=== PATIENT | female | born 1990 | race Caucasian/White ===

== ENCOUNTER 2017-11-24 14:42 | Emergency (ER) | payer OTHER ==
[2017-11-24] MEDS ORDERED: ONDANSETRON 4 MG (ODT) TAB ONE (15:57)
--- NOTE | 2017-11-24 16:20 | ER ---
Nurse's Notes [facility] Name: Heavenly Salinas Age: 27 yrs Sex: Female : 1990 Arrival Date: 11/24/2017 Time: 14:46 Bed 16 Private MD: Diagnosis: Nausea and vomiting Presentation: 11/24 14:51 Presenting complaint: Patient states: N/V for 2 weeks. Transition of care: patient was aj not received from another setting of care. Onset of symptoms was November 22, 2017. Care prior to arrival: None. 14:51 Method Of Arrival: Ambulatory aj 14:51 Acuity: DIONTE 3 aj Triage Assessment: 14:54 General: Appears in no apparent distress. comfortable, Behavior is calm, cooperative, aj appropriate for age. Pain: Denies pain. Neuro: Level of Consciousness is awake, alert, obeys commands, Oriented to person, place, time, situation. Respiratory: Airway is patent Respiratory effort is even, unlabored, Respiratory pattern is regular, symmetrical. GI: Reports nausea, vomiting. Derm: Skin is intact, is healthy with good turgor, Skin is pink, warm \T\ dry. normal. 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 - Social history:: Smoking status: Patient/guardian denies using tobacco, Patient uses street drugs, marijuana. Screenin:10 Abuse screen: Denies threats or abuse. Nutritional screening: No deficits noted. rb1 Tuberculosis screening: No symptoms or risk factors identified. Fall Risk None identified. Assessment: 15:10 General: Appears in no apparent distress. comfortable, Behavior is calm, cooperative. rb1 Neuro: Level of Consciousness is awake, alert, obeys commands, Oriented to person, place, time, situation. Cardiovascular: Capillary refill < 3 seconds is brisk in bilateral fingers. Respiratory: Airway is patent Respiratory effort is even, unlabored, Respiratory pattern is regular, symmetrical. GI: Reports nausea, vomiting. GI: Bowel sounds present X 4 quads. : No signs and/or symptoms were reported regarding the genitourinary system. Derm: Skin is pink, warm \T\ dry. 15:10 GI: Abdomen is flat, non-distended. rb1 16:00 Reassessment: Patient appears in no apparent distress at this time. No changes from rb1 previously documented assessment. 16:39 Reassessment: pt. tolerated the PO challenge well. Pt. requested some Pepcid before rb1 being discharged. Provider notified. Vital Signs: 14:54 BP 126 / 91; Pulse 113; Resp 20; Temp 99.3; Pulse Ox 99% on R/A; Weight 60.33 kg; aj Height 5 ft. 7 in. (170.18 cm); Pain 0/10; 15:42 BP 123 / 84; Pulse 83; Resp 18; Pulse Ox 100% on R/A; Weight 57.02 kg (M); rb1 16:30 BP 118 / 82; Pulse 74; Resp 16; Pulse Ox 100% ; rb1 15:42 Body Mass Index 19.69 (57.02 kg, 170.18 cm) rb1 ED Course: 14:46 Patient arrived in ED. mr 14:52 Triage completed. aj 14:54 Arm band placed on right wrist. Patient placed in waiting room. aj 15:08 Rikki Fung PA is PHCP. cp 15:08 Tristan Geuvara MD is Attending Physician. cp 15:10 Patient has correct armband on for positive identification. Bed in low position. Call rb1 light in reach. Side rails up X 1. Pulse ox on. NIBP on. 15:34 Vianey Araujo, RN is Primary Nurse. rb1 16:19 Eric Pop MD is Referral Physician. cp 16:53 No provider procedures requiring assistance completed. Patient did not have IV access rb1 during this emergency room visit. Administered Medications: 15:36 CANCELLED (provider changed order to PO): Zofran 4 mg IVP once; over 2 minutes rb1 15:39 Drug: Zofran 4 mg Route: PO; rb1 16:03 Follow up: Response: No adverse reaction; Nausea is decreased rb1 16:48 Drug: Pepcid 20 mg Route: PO; rb1 16:49 Follow up: Response: Medication administered at discharge. rb1 Outcome: 16:19 Discharge ordered by . cp 16:50 Discharged to home ambulatory, with significant other. rb1 16:50 Condition: stable 16:50 Discharge instructions given to patient, Instructed on discharge instructions, follow up and referral plans. medication usage, Demonstrated understanding of instructions, follow-up care, medications, Prescriptions given X 2. 16:50 Patient left the ED. rb1 Signatures: Bria Seaman RN RN Thao Coulter mr Antonieta, Rikki, NADER PA Vianey Venegas RN RN rb1 Corrections: (The following items were deleted from the chart) 14:54 14:51 Presenting complaint: Patient states: N/V for 2 days. aj aj 16:52 15:30 BP 118 / 82; Pulse 74bpm; Resp 16bpm; Pulse Ox 100%; rb1 rb1 16:53 15:42 57.02 kg Measured; BMI: 19.6; rb1 rb1 16:55 16:54 Patient left the ED. rb1 rb1
--- NOTE | 2017-11-24 16:20 | EDPHYS ---
Physician Documentation [facility] Name: Heavenly Salinas Age: 27 yrs Sex: Female : 1990 Arrival Date: 11/24/2017 Time: 14:46 Bed 16 Private MD: ED Physician Tristan Guevara HPI: 11/24 15:28 This 27 yrs old Female presents to ER via Ambulatory with complaints of cp Vomiting. 15:28 The patient presents to the emergency department with vomiting, that is intermittent. cp 15:28 Onset: The symptoms/episode began/occurred 2 week(s) ago. Possible causes: flare up of cp bowel problem, gastritis. Associated signs and symptoms: Pertinent positives: abdominal pain, Pertinent negatives: constipation, diarrhea, dysuria, fever, GI bleeding. Severity of symptoms: in the emergency department the symptoms have improved markedly. 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 - Social history:: Smoking status: Patient/guardian denies using tobacco, Patient uses street drugs, marijuana. ROS: 15:30 Constitutional: Negative for body aches, chills, fever, poor PO intake. cp 15:30 Eyes: Negative for injury, pain, redness, and discharge. cp 15:30 ENT: Negative for drainage from ear(s), ear pain, sore throat, difficulty swallowing, difficulty handling secretions. 15:30 Cardiovascular: Negative for chest pain, edema, palpitations. 15:30 Respiratory: Negative for cough, shortness of breath, wheezing. 15:30 Abdomen/GI: Positive for nausea, vomiting, Negative for diarrhea, constipation, anorexia, dysphagia, black/tarry stool, rectal bleeding. 15:30 Back: Negative for pain at rest, pain with movement, radiated pain. 15:30 : Negative for urinary symptoms, vaginal bleeding, vaginal discharge. 15:30 Skin: Negative for cellulitis, rash. 15:30 Neuro: Negative for altered mental status, headache, weakness. 15:30 All other systems are negative. Exam: 15:40 Special observations: no evidence of discomfort, patient reading magazine upon entering cp exam room and talking with friend. 15:40 Constitutional: The patient appears in no acute distress, alert, awake, comfortable, cp non-toxic, well developed, well nourished. 15:40 Head/Face: Normocephalic, atraumatic. cp 15:40 Eyes: Periorbital structures: appear normal, Conjunctiva: normal, no exudate, no injection, Sclera: no appreciated abnormality, Lids and lashes: appear normal, bilaterally. 15:40 ENT: External ear(s): are unremarkable, Ear canal(s): are normal, clear, TM's: are normal, Nose: is normal, Mouth: Lips: moist, Oral mucosa: pink and intact, moist, Posterior pharynx: is normal, airway is patent. 15:40 Neck: ROM/movement: is normal, is supple, without pain, no range of motions limitations, no nuchal rigidity. 15:40 Chest/axilla: Inspection: normal, Palpation: is normal, no crepitus, no tenderness. 15:40 Cardiovascular: Rate: tachycardic, Rhythm: regular. 15:40 Respiratory: the patient does not display signs of respiratory distress, Respirations: normal, no use of accessory muscles, no retractions, no splinting, no tachypnea, labored breathing, is not present, Breath sounds: are clear throughout, no decreased breath sounds, no stridor, no wheezing. 15:40 Abdomen/GI: Inspection: abdomen appears normal, Bowel sounds: active, all quadrants, Palpation: abdomen is soft and non-tender, in all quadrants, rebound tenderness, is not appreciated, voluntary guarding, is not appreciated, involuntary guarding, is not appreciated. 15:40 Back: pain, is absent, ROM is normal. 15:40 Skin: cellulitis, is not appreciated, no rash present. 15:40 Neuro: Orientation: to person, place \T\ time. Mentation: is normal, Motor: moves all fours, strength is normal, Sensation: no obvious gross deficits. Vital Signs: 14:54 BP 126 / 91; Pulse 113; Resp 20; Temp 99.3; Pulse Ox 99% on R/A; Weight 60.33 kg; aj Height 5 ft. 7 in. (170.18 cm); Pain 0/10; 15:42 BP 123 / 84; Pulse 83; Resp 18; Pulse Ox 100% on R/A; Weight 57.02 kg (M); rb1 16:30 BP 118 / 82; Pulse 74; Resp 16; Pulse Ox 100% ; rb1 15:42 Body Mass Index 19.69 (57.02 kg, 170.18 cm) rb1 MDM: 15:08 Patient medically screened. cp 16:18 Data reviewed: vital signs, nurses notes, lab test result(s), and as a result, I will cp discharge patient. 16:18 Differential diagnosis: Nonspecific abd pain, gastritis, cholecystitis, pancreatitis, cp appendicitis, viral gastroenteritis, gastroenteritis. Special discussion: Based on the patient's Hx, exam, and Dx evaluation, there is no indication for emergent surgery or inpatient Tx. It is understood by the patient/guardian that if the Sx's persist or worsen they need to return immediately for re-evaluation. 11/24 16:23 Order name: Urine Dipstick--Ancillary (enter results); Complete Time: 16:43 bd 11/24 16:23 Order name: Urine --Ancillary (enter results); Complete Time: 16:43 bd 11/24 15:28 Order name: Urine Dipstick-Ancillary (obtain specimen); Complete Time: 16:05 cp 11/24 15:28 Order name: Urine Test (obtain specimen); Complete Time: 16:05 cp 11/24 15:50 Order name: PO challenge; Complete Time: 16:48 cp Administered Medications: 15:36 CANCELLED (provider changed order to PO): Zofran 4 mg IVP once; over 2 minutes rb1 15:39 Drug: Zofran 4 mg Route: PO; rb1 16:03 Follow up: Response: No adverse reaction; Nausea is decreased rb1 16:48 Drug: Pepcid 20 mg Route: PO; rb1 16:49 Follow up: Response: Medication administered at discharge. rb1 Disposition: 11/24/17 16:19 Discharged to Home. Impression: Nausea and vomiting. - Condition is Stable. - Discharge Instructions: Nausea and Vomiting. - Prescriptions for Pepcid 20 mg Oral Tablet - take 1 tablet by ORAL route every 12 hours for 10 days; 20 tablet. Zofran 4 mg Oral Tablet - take 1 tablet by ORAL route every 12 hours As needed; 20 tablet. - Medication Reconciliation Form, Thank You Letter, Antibiotic Education, Prescription Opioid Use form. - Follow up: Eric Pop MD; When: 1 - 2 days; Reason: Recheck today's complaints. - Problem is new. - Symptoms have improved. Signatures: Dispatcher [employer] EDBria Hicks RN RN Rikki Cunningham PA PA cp Barber, Rebecca, RN RN rb1 Corrections: (The following items were deleted from the chart) 15:36 15:28 Zofran 4 mg IVP once; over 2 minutes ordered. cp rb1 15:36 15:35 Zofran 4 mg IVP once; over 2 minutes ordered. rb1 rb1
[2017-11-24 16:39] LABS: Urine Blood 1+ (NEG); Urine Glucose NEGATIVE (NEG); Urine Protein 1+ (NEG); Urine Specific Gravity >1.030 (1.005-1.030); Urine pH 5.5 (5.0-7.0)
[2017-11-24 16:59] VITALS: TEMP 99.3
[2017-11-24 17:00] VITALS: O2SAT 100
[2017-11-24 17:01] VITALS: BP 118/82
[2017-11-24] MEDS ORDERED: FAMOTIDINE 20 MG TAB ONE (17:04)
== END 2017-11-24 16:54 | disposition home or self-care (01) ==
LOC: ER 14:42
DX: R11.2 Nausea with vomiting, unspecified (principal); Z85.9 Personal history of malignant neoplasm, unspecified
CPT/HCPCS: 81003; 81025; 99283